=== PATIENT | female | born 2000 | race Caucasian/White ===

== ENCOUNTER 2020-05-18 01:11 | Outpatient (CLI) | payer OTHER, SELFPAY ==
[2020-05-18 19:47] LABS: SARS-CoV-2 RNA PCR Negative
== END 2020-05-18 01:12 | disposition home or self-care (01) ==
LOC: ANHCOVIDDT 01:11
PROVIDERS: Visit Provider Dentist
DX: Z01.818 Encounter for other preprocedural examination (principal); Z20.828 Contact with and (suspected) exposure to other viral communicable diseases
CPT/HCPCS: 87635; C9803; U0003

== ENCOUNTER 2020-05-20 00:35 | Day surgery (SDC) | payer OTHER, SELFPAY ==
[2020-05-07 14:47] VITALS: BMI 32.5
[2020-05-20] VITALS (10 sets, daily range): BP systolic 138–156; BP diastolic 62–88; PULSE 54–77; RESP 14–20; TEMP 36.1–36.4; O2SAT 99–100
[2020-05-20] MEDS: LACTATED RINGERS 1,000 ML 30 ML IV CONT ×2 (06:45→09:18)
[2020-05-20] MEDS: OXYMETAZOLINE HCL 0.05% NAS 15 ML BTL (*BKC) 1 SPRAY NASAL (07:44)
--- NOTE | 2020-05-20 08:00 | WPDANESEPPF ---
Anes - Initial Pre Proc Eval Procedure: Operation Date: 05/20/20 08:15 Proposed Procedures p Biopsy of Lesion Right Maxilla - Luigi Albarran DMD Date/Time: 05/20/20 08:00 Surgeon: Luigi Albarran DMD Pre Op Diagnosis: lesion of maxilla Patient Data Age: 20 Gender: F Height: 5 ft 9 in Weight: 110.4 kg Last Vital Signs Temp 36.4 C 05/20/20 06:30 Pulse 77 05/20/20 06:30 Resp 20 05/20/20 06:30 BP 143/62 H 05/20/20 06:30 Pulse Ox 99 05/20/20 06:30 Allergies Allergy/AdvReac Type Severity Reaction Status Date / Time cefdinir Allergy HIVES, Verified 05/07/20 14:48 SERUM SICKNESS Home Medications Medication Instructions Recorded Confirmed Type norgestrel-ethinyl estradiol 1 tablet PO DAILY 05/07/20 05/07/20 History [Bennett (28)] Patient hx anesthesia problems: none Family hx anesthesia problems: none [facility] Past Medical History Medical History Polycystic kidney disease Social History Social History Smoking status: Never smoker Alcohol intake: current Drinks per week: 1 Spiritual care concerns: No Anes - Eval Final PreProcedure Day of Procedure 05/20/20 08:00 Patient weight: obese Heart: regular rate and rhythm Lungs: clear to auscultation Airway: Mallampati scale class II Neurological: alert and oriented Last oral intake: >/= 8 hours ASA classification: II Emergent: no Anesthetic plan: proceed Anesthesia type and monitoring: general ETT and standard monitoring Informed Consent: The patient's anesthetic plan and its attendant risks and benefits were discussed with the patient/family/POA. Questions were solicited and answers provided to the satisfaction of the patient/family/POA.
--- NOTE | 2020-05-20 08:10 | PM.IMHP ---
H&P: HPI History of Present Illness Date/Time: 05/20/20 08:10 Chief complaint: lesion of maxilla Narrative: Caridad Sexton is a 20 year old female with lesion right maxilla. PMFSH Past Medical History Medical History Polycystic kidney disease Social History Social History Smoking status: Never smoker Alcohol intake: current Drinks per week: 1 Spiritual care concerns: No Meds Home Medications and Allergies Home Medications Medication Instructions Recorded Confirmed Type norgestrel-ethinyl estradiol 1 tablet PO DAILY 05/07/20 05/07/20 History [Bennett (28)] Allergies Allergy/AdvReac Type Severity Reaction Status Date / Time cefdinir Allergy HIVES, Verified 05/07/20 14:48 SERUM SICKNESS Vital Signs Vital Signs - 24 hr 05/20/20 06:30 05/20/20 06:45 Temperature 36.4 C 36.4 C Pulse Rate 77 77 Respiratory Rate 20 20 Blood Pressure 143/62 H 143/62 H Pulse Oximetry 99 99 Assessment and Plan Assessment and plan (1) Cystic lesion of maxilla determined by X-ray: Code(s): M27.40 - Unspecified cyst of jaw Status: Acute Assessment and Plan: enucleate lesion right maxilla
--- NOTE | 2020-05-20 08:11 | WPDHPUPDATE1 ---
History and Physical Update Update Date/Time: 05/20/20 08:11 History and Physical has been reviewed, including an updated exam of the patient. There are NO changes in the patient's condition. Risks, benefits, and alternatives have been discussed and questions answered. Patient agrees to proceed with procedure.
[2020-05-20] MEDS: LIDOCAINE 2%-EPI (FOR DENTAL BLOCK) 1.7 ML CARTRIDGE INFILTRATE (08:19)
--- NOTE | 2020-05-20 08:51 | SUR.OPER ---
1 vial of fentanyl checked out for this patient and given to dino delgado crna
--- NOTE | 2020-05-20 09:08 | SUR.OPER ---
EBL:20cc
--- NOTE | 2020-05-20 09:15 | PM.PROC ---
Procedure Note - Detailed Date of procedure: 05/20/20 Pre-op diagnosis: lesion of maxilla Surgeon: Luigi Albarran, KEAGAN The patient was encountered in the operating room under the care of the anesthesia service who induced a general anesthetic. Oral cavity was suctioned free of debris and throat pack was placed. Local anesthetic administered. A 15 blade was used to make a 3rd molar incision the area of 1. And a sulcular incision was completed in the right maxilla. A needle was inserted into the right maxillary sinus in the area of tooth 1. And no fluid was obtained. A full-thickness flap was elevated to the buccal. A drill was used to create a Seals lock access to the right maxillary sinus via the anterior maxillary wall. The cystic lesion was found to be easily from the schnidarian and membrane. The cystic lesion was filled with a thick yellow fluid. The lesion was then enucleated from the right maxillary sinus and removed in 1 piece. The wound was thoroughly irrigated and closed. Complications none estimated blood loss 20cc. Preoperative diagnosis lesion right maxilla. Postop diagnosis same. Procedure performed removal of lesion right maxilla. Care the patient was returned to the anesthesia service who extubated the patient transferred to recovery in stable condition.
[2020-05-20] MEDS: fentaNYL CITRATE INJ (*CRX) 100 MCG/2 ML VIAL 25 MCG IV PUSH ×2 (09:35→09:53)
== END 2020-05-20 10:59 | disposition home or self-care (01) ==
PROVIDERS: PCP Pediatrics; Visit Provider Dentist
PROC: (CPT 20240; principal; 2020-05-20 08:15)
DX: M27.8 Other specified diseases of jaws (principal); Q61.3 Polycystic kidney, unspecified; E66.9 Obesity, unspecified; Z68.35 Body mass index [BMI] 35.0-35.9, adult
CPT/HCPCS: 21030; A9270; J0330; J1100; J2250; J2405; J2704; J3010; J7120

== ENCOUNTER 2021-03-18 00:34 | Day surgery (SDC) | payer OTHER, SELFPAY ==
[2021-03-11 12:32] VITALS: BMI 34.4
--- NOTE | 2021-03-17 10:44 | WPDANESEPPF ---
Anes - Initial Pre Proc Eval Procedure: Operation Date: 03/18/21 08:30 Proposed Procedures p Seals Andrade Right Maxillary Antrostomy, Bilateral Inferior Turbinectomy - Nain Lewis MD s Septoplasty - Nain Lewis MD Date/Time: 03/17/21 10:44 Surgeon: Nain Lewis MD Pre Op Diagnosis: chronic sinusitis Patient Data Age: 20 Gender: F Height: 1.78 m Weight: 109 kg Allergies Allergy/AdvReac Type Severity Reaction Status Date / Time cefdinir Allergy Intermediate HIVES, Verified 03/18/21 06:28 SERUM SICKNESS Home Medications Medication Instructions Recorded Confirmed Type norgestrel-ethinyl estradiol 1 tablet PO DAILY 05/07/20 03/18/21 History [Bennett (28)] prednisone 10 mg tablet 10 mg PO DAILY #3 tablet 03/15/21 03/18/21 Rx Patient hx anesthesia problems: none Family hx anesthesia problems: none PMFSH Past Medical History Medical History (Updated 03/17/21 @ 11:03 by Nain Lewis MD) Cystic lesion of maxilla determined by X-ray Hypertrophy of both inferior nasal turbinates Nasal septal deviation PCOS (polycystic ovarian syndrome) Polycystic kidney disease Family History Family History Father Hypertension Mother Diabetes mellitus Hypertension Polycystic kidney disease Grandparent Cancer Diabetes mellitus Hypertension Depression Heart disease Cerebrovascular accident Grandparent Cancer Social History Social History (Updated 02/18/21 @ 09:32 by Alba Hui) Social History: Single Smoking status: Never smoker Second hand tobacco smoke exposure: No Alcohol intake: current Alcohol use details: Socially Substance use: never Substance use type: does not use Living arrangements: with family Gender identity (if verbalized by the patient): Female Spiritual care concerns: No Anes - Eval Final PreProcedure Day of Procedure 03/17/21 10:44 Patient weight: obese Heart: regular rate and rhythm Lungs: clear to auscultation and normal air movement Airway: Mallampati scale class II Neurological: alert and oriented Last oral intake: >/= 8 hours ASA classification: III Emergent: no Anesthetic plan: proceed Anesthesia type and monitoring: general ETT and standard monitoring Informed Consent: The patient's anesthetic plan and its attendant risks and benefits were discussed with the patient/family/POA. Questions were solicited and answers provided to the satisfaction of the patient/family/POA.
--- NOTE | 2021-03-17 11:02 | PM.IMHP ---
H&P: HPI History of Present Illness Date/Time: 03/17/21 11:02 Chief Complaint: Septal deviation inferior turbinate hypertrophy nasal obstruction nasal congestion right maxillary sinusitis possible right maxillary lesion Narrative: patient presents for planned surgical procedure no change in symptoms no change in history. Review of Systems Constitutional: Constitutional: Denies fatigue, Denies fever(s) and Denies lethargy Eyes: Eyes: Denies blurry vision and Denies change in vision ENT: Reports as per HPI Cardiovascular: Cardiovascular: Denies chest pain Respiratory: Respiratory: Denies cough Endocrine: Endocrine: Denies fatigue Hematologic/Lymphatic: Hematologic/Lymphatic: Denies easy bleeding, Denies easy bruising and Denies lymphadenopathy Allergic/Immunologic: Allergic/Immunologic: Denies seasonal rhinorrhea [facility] Past Medical History Medical History (Updated 03/17/21 @ 11:03 by Nain Lewis MD) Cystic lesion of maxilla determined by X-ray Hypertrophy of both inferior nasal turbinates Nasal septal deviation PCOS (polycystic ovarian syndrome) Polycystic kidney disease Family History Family History Father Hypertension Mother Diabetes mellitus Hypertension Polycystic kidney disease Grandparent Cancer Diabetes mellitus Hypertension Depression Heart disease Cerebrovascular accident Grandparent Cancer Social History Social History (Updated 02/18/21 @ 09:32 by Alba Hui) Social History: Single Smoking status: Never smoker Second hand tobacco smoke exposure: No Alcohol intake: current Alcohol use details: Socially Substance use: never Substance use type: does not use Gender identity (if verbalized by the patient): Female Spiritual care concerns: No Meds Home Medications and Allergies Home Medications Medication Instructions Recorded Confirmed Type norgestrel-ethinyl estradiol 1 tablet PO DAILY 05/07/20 03/11/21 History [Bennett (28)] prednisone 10 mg tablet 10 mg PO DAILY #3 tablet 03/15/21 Rx Allergies Allergy/AdvReac Type Severity Reaction Status Date / Time cefdinir Allergy Intermediate HIVES, Verified 03/11/21 12:32 SERUM SICKNESS Exam Const: General: cooperative, healthy appearing, comfortable, well developed and alert HENMT: Head: normal to inspection, normocephalic and atraumatic Ears: hearing grossly normal bilaterally, external ears normal, TM's normal bilaterally and EAC's normal General nose exam: Normal external nose present, Normal nares present, No nasal polyps present and Other nasal findings present ( Septal deviation inferior turbinate hypertrophy) Face and sinus: normal facial exam Mouth: Yes Normal oral and palatal mucosa present, Yes lip normal, Yes tongue normal, Yes oropharynx normal and Yes moist mucous membranes Teeth and gingiva: dentition normal and gingiva normal Throat: posterior oropharynx normal, tonsils normal and uvula midline Eyes: General: appearance normal, both eyes and all related structures Periorbital: periorbital findings normal Eyelids: eyelids normal Conjunctivae: conjunctivae normal Sclera: sclerae normal Neck: Neck: normal visual inspection, full ROM and no lymphadenopathy Thyroid: thyroid normal Lymphatic: no lymphadenopathy noted Resp: Effort & Inspection: normal respiratory effort and able to speak in complete sentences Cardio: Jugular venous distension: no JVD Neuro: Cranial nerves: Yes CN's II-XII intact bilaterally Assessment and Plan Assessment and plan (1) Cystic lesion of maxilla determined by X-ray: Code(s): M27.40 - Unspecified cyst of jaw Status: Acute Assessment and Plan: plan is for the OR endoscopic assisted septoplasty turbinate reduction right-sided maxillary antrostomy possible Seals lock on the right total operative time 1.5-2 hours. Risks were discussed with the patien
[2021-03-18] VITALS (9 sets, daily range): BP systolic 119–134; BP diastolic 60–80; PULSE 58–71; RESP 13–21; TEMP 36.1–36.8; O2SAT 98–100
[2021-03-18] MEDS: LACTATED RINGERS 1,000 ML 30 ML IV CONT (06:59)
[2021-03-18] MEDS: ACETAMINOPHEN 500 MG TABLET 1000 MG PO (06:59)
--- NOTE | 2021-03-18 07:02 | WPDHPUPDATE1 ---
History and Physical Update Update Date/Time: 03/18/21 07:02 History and Physical has been reviewed, including an updated exam of the patient. There are NO changes in the patient's condition. Risks, benefits, and alternatives have been discussed and questions answered. Patient agrees to proceed with procedure.
[2021-03-18] MEDS: CLINDAMYCIN 900 MG/D5W 50 ML 900 MG/50 ML PIGGYBACK 50 MG IVPB (08:15)
--- NOTE | 2021-03-18 10:18 | W.PM.PROC2 ---
Procedure Note - Detailed Date of Procedure 03/18/21 Pre-op Diagnosis chronic sinusitis, nasal obstruction, nasal congestion, inferior turbinate hypertrophy, right maxillary sinusitis, septal deviation Post-op Diagnosis same Procedure Performed 1. Endoscopic assisted septoplasty 2. Bilateral inferior turbinate submucosal resection with outfracture 3. Right-sided maxillary antrostomy with tissue removed Surgeon Nain Lewis MD Anesthesia general Indications See above Findings Copious amounts of purulence osteitic bone in the right maxillary sinus septal deviation inferior turbinate hypertrophy corrected Description of Procedure Patient was correctly identified and marked consent verified in the preoperative holding area. The patient was brought to the operating room and a time-out performed. General anesthesia was induced and endotracheal tube was secured the patient's airway and taped to the left lower lip. The patient was then prepped and draped for the aforementioned procedure. Second time-out performed. Afrin-soaked pledgets were placed in the bilateral nasal passages and allowed to sit for 5 minutes. They were then removed. Under endoscopic guidance the bilateral nasal passages reviewed in the aforementioned findings noted. 10 cc of 1% lidocaine with 1 100,000 parts epinephrine was injected in the submucoperichondrial plane in the bilateral nasal septum as well as heads of the inferior turbinates. Luis incision made on left anterior nasal septum using a 15 blade. The sub nasal septal flap on the left was elevated using 7 Dominican suction as well as caudal elevator a right-sided flap was then made once the septum was crossed over half. No perforations were noted. Deviated nasal septum removed with osteotome 15 blade Natividad forceps Elias Burnston forceps. The right middle turbinate was then medialized double ball tip probe was utilized to enter posterior to the uncinate fracturing this forward backbiter was used to create a maxillary antrostomy copious amounts of purulence were noted. Micro debrider straight through cut and a backbiter were again used to widen the maxillary antrostomy copious amounts of infected tissue debris and purulence were debrided in removed from the maxillary sinus. This was irrigated 5 times and suctioned no further purulence was noted. No cyst or tumor was noted. The bilateral inferior turbinates were entered anteriorly using the microdebrider with 2 mm turbinate blade and debrided the submucosal plane. Redundant significant amounts of polypoid tissue posteriorly were then debrided and cauterized with suction Bovie electrocautery at a setting of 10. Hemostasis was excellent. Bilateral nasal passages were irrigated and suctioned the choanae with no further bleeding noted. NasoPore placed lateral to the right middle turbinate the Luis incision was closed with 5 interrupted 5 0 fast gut sutures. Barr splints placed bilaterally and sutured anteriorly using a 3-0 mattress nylon suture. Hemostasis was excellent total blood loss 20 cc. There were no immediate complications. Care the patient was turned over to Anesthesiology. I performed all portions of the procedure. Implants Nasopore packing Estimated Blood Loss 20 Drains No Packing Yes Complications No immediate complications Condition stable Disposition PACU
--- NOTE | 2021-03-18 15:04 | SUR.PHASEII ---
[id number] DR MOFFETT STATES HE WILL CALL IN [facility] FOR NOEL. DR MOFFETT SPOKE WITH PTS PARENT PER PHONE.
== END 2021-03-18 11:45 | disposition home or self-care (01) ==
PROVIDERS: PCP Family Medicine; Visit Provider Otolaryngology
PROC: (CPT 31267; principal; 2021-03-18 08:30)
PROC: (CPT 30520; 2021-03-18 08:30)
DX: J32.0 Chronic maxillary sinusitis (principal); J34.3 Hypertrophy of nasal turbinates; J34.2 Deviated nasal septum; R09.81 Nasal congestion; J34.89 Other specified disorders of nose and nasal sinuses; E28.2 Polycystic ovarian syndrome; Q61.3 Polycystic kidney, unspecified; E66.9 Obesity, unspecified; Z68.35 Body mass index [BMI] 35.0-35.9, adult
CPT/HCPCS: 31267; 61782; 30520; 30140; A9270; J0330; J1100; J2250; J2270; J2405; J2704; J7120